=== PATIENT | female | born 1965 | race Hispanic/Latino ===

== ENCOUNTER 2021-06-26 12:53 | Emergency (ER) | payer SELFPAY ==
[~2021-06-26 12:53] MED LIST: Iopamidol 370 76% 100 ML VIAL ONE
[2021-06-26] MEDS ORDERED: Aspirin Chewable 81 MG TAB ONE (13:56)
[2021-06-26] MEDS ORDERED: diphenhydrAMINE 25 MG CAP ONE (13:56)
[2021-06-26] MEDS ORDERED: Pantoprazole 40 MG VIAL ONE (14:01)
[2021-06-26 14:22] LABS: #Eosinphils 0.1 thou/uL (0.0-0.7); #Monocytes 0.6 thou/uL (0.11-0.59); #Neutrophils 5.8 thou/uL (1.40-6.50); %Basophils 0.4 % (0.0-1.0); %Eosinophils 0.8 % (0.0-10.0); %Lymphocytes 31.8 % (21.0-51.0); %Monocytes 6.1 % (0.0-10.0); %Neutrophils 60.9 % (42.0-75.0); Hemoglobin 13.8 g/dL (12.0-16.0); Mean Corpuscular HGB CONC 31.9 g/dL (32.0-36.0); Mean Corpuscular Hemoglobin 27.9 pg (27.0-31.0); Mean Corpuscular Volume 87.3 fL (78.0-98.0); Mean Platelet Volume 7.8 fL (7.4-10.4); Platelet Count 173 thou/uL (130-400); RBC Distribution Width 13.4 % (11.5-14.5); Red Blood Cell (RBC) Count 4.94 mill/uL (4.20-5.40); White Blood Cell (WBC) Count 9.5 thou/uL (4.8-10.8)
[2021-06-26 14:32] LABS: ALT (SGPT) 65 U/L (8-55); AST (SGOT) 43 U/L (5-34); Albumin 3.8 g/dL (3.5-5.0); Alkaline Phosphatase 148 U/L (40-110); Anion Gap 11 mmol/L (10-20); BUN (Urea Nitrogen) 14 mg/dL (9.8-20.1); Bilirubin, Total 0.7 mg/dL (0.2-1.2); Calc. Creatinine Clearance 0 mL/min (70-130); Calcium 9.3 mg/dL (7.8-10.44); Carbon Dioxide 27 mmol/L (22-29); Chloride 105 mmol/L (98-107); Globulin 2.7 g/dL (2.4-3.5); Glucose 92 mg/dL (70-105); Lipase 27 U/L (8-78); Protein, Total 6.5 g/dL (6.0-8.3); Sodium 140 mmol/L (136-145)
[2021-06-26 14:37] LABS: Potassium 2.9 mmol/L (3.5-5.1)
[2021-06-26] MEDS ORDERED: Potassium Chloride 20 MEQ TAB ONE (14:45)
[2021-06-26] MEDS ORDERED: Lisinopril 10 MG TAB ONE (14:45)
== END 2021-06-26 15:50 | disposition home or self-care (01) ==
LOC: NAV ERS 12:53
DX: R07.89 Other chest pain (principal); T38.0X5A Adverse effect of glucocorticoids and synthetic analogues, initial encounter; T78.40XA Allergy, unspecified, initial encounter; I10 Essential (primary) hypertension; E87.6 Hypokalemia; Z79.899 Other long term (current) drug therapy
CPT/HCPCS: 71045; 71275; 80053; 83690; 84484; 85025; 85379; 93005; 94760; 96374; C9113; Q9967